=== PATIENT | female | born 1985 | race Caucasian/White ===

== ENCOUNTER 2018-02-07 09:39 | Emergency (ER) | payer OTHER ==
[~2018-02-07] VITALS: Ht 165.1 cm; Wt 58.1 kg
[2018-02-07] MEDS ORDERED: SEPTRA PO (09:48)
== END 2018-02-07 11:33 | disposition home or self-care (01) ==
LOC: ER 09:39
DX: R20.0 Anesthesia of skin (principal); R30.0 Dysuria